=== PATIENT | male | born 1965 | race Caucasian/White ===

== ENCOUNTER 2023-04-14 07:55 | Outpatient (OUT) | payer BC, SELFPAY ==
--- NOTE | 2023-04-14 | CT_ITS ---
[address] [address] Patient Name: ANITA ALFREDO MRN: [id number] date: 1965 Sex: M Assigned Patient Location: CT Current Patient Location: Accession/Order Number: [id number] Exam Date: 04/14/2023 08:08 Report Date: 04/15/2023 08:29 At the request of: TEVIN MUÑOZ Procedure: CT lung screening low-dose EXAMINATION: CT lung screening low-dose HISTORY: F17.200 Nicotine dependence unspecified uncomplicated COMPARISON: CT lung cancer screening 03/25/2022 TECHNIQUE: Axial, Coronal, and Sagittal images were created without the administration of IV contrast material. Dose reduction techniques were achieved by using automated exposure control and/or adjustment of mA and/or kV according to patient size and/or use of iterative reconstruction technique. FINDINGS: LUNGS: Mild emphysematous changes and mild apical pleural scarring. No nodules or infiltrates. PLEURA: No mass, effusion, or pneumothorax. VASCULATURE: No abnormality. SARA: No mass or pathologic adenopathy. MEDIASTINUM: No mass or pathologic adenopathy. CARDIAC: No enlargement, pericardial thickening, or pericardial effusion. AORTA: No aneurysm or dissection. CHEST WALL: No mass or axillary adenopathy BONES: No bone lesion or fracture. LIMITED ABDOMEN: No suspicious findings. Limited images of the upper abdomen. OTHER: Negative. CT/CT lung screening low-dose IMPRESSION: 1. Lung-RADS Category 1 Negative. No nodules and definitely benign nodules. Continue annual screening with LDCT in 12 months. Electronically authenticated by: PARDEEP AKHTAR Date: 04/15/2023 08:29
== END 2023-04-14 07:56 | disposition home or self-care (01) ==
LOC: CT 07:55
PROVIDERS: PCP Nurse Practitioner Family; Visit Provider Nurse Practitioner Family
DX: F17.200 Nicotine dependence, unspecified, uncomplicated (principal)
CPT/HCPCS: 71271

== ENCOUNTER 2023-08-01 13:41 | Emergency (ER) | payer BC, SELFPAY ==
[2023-08-01] VITALS (22 sets, daily range): BP systolic 127–148; BP diastolic 75–98; PULSE 88–107; TEMP 36.7; O2SAT 91–99; BMI 17.4
--- NOTE | 2023-08-01 14:08 | XR_ITS ---
The [address] [address] Patient Name: ANITA ALFREDO MRN: [id number] date: 1965 Sex: M Assigned Patient Location: ER Current Patient Location: ER Accession/Order Number: [id number] Exam Date: 08/01/2023 14:40 Report Date: 08/01/2023 15:30 At the request of: AMY SANDOVAL Procedure: XR chest 1V EXAMINATION: XR chest 1V HISTORY: cp ; chest pain COMPARISON: No relevant comparison available. FINDINGS: LUNGS: No significant pulmonary parenchymal abnormalities. VASCULATURE: No increased pulmonary vasculature. PLEURA: No pneumothorax, effusion, or pleural thickening. CARDIAC: No cardiomegaly or cardiac silhouette abnormality. MEDIASTINUM: No visible mass or adenopathy. BONES: No fracture or visible bone lesion. OTHER: Negative. XR/XR chest 1V IMPRESSION: 1. No acute cardiopulmonary process. Electronically authenticated by: PARDEEP AKHTAR Date: 08/01/2023 15:30
--- NOTE | 2023-08-01 14:08 | ECG_ITS ---
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
[2023-08-01] MEDS: IPRATROPIUM/ALBUTEROL SULFATE 3 ML AMPUL.NEB IH (14:19)
[2023-08-01 14:38] LABS: Basophils Percent Auto 0.3 % (0.2-2.0); Eosinophils Absolute Auto 0.1 10^3/uL (0.0-0.7); Eosinophils Percent Auto 1.1 % (0.9-7.0); Hematocrit 44.3 % (42.0-54.0); Hemoglobin 14.7 g/dL (14.0-18.0); Immature Granulocytes Abs Auto 0.03 10^3/uL (0.00-0.03); Immature Granulocytes Pct Auto 0.3 % (0.0-0.5); Lymphocytes Percent Auto 17.1 % (20.5-60.0); Mean Corpuscular HGB Conc 33.2 g/dL (29.9-35.2); Mean Corpuscular Hemoglobin 30.2 pg (25.9-34.0); Mean Platelet Volume 11.4 fL (9.5-13.5); Monocytes Absolute Auto 0.9 10^3/uL (0.3-0.8); Monocytes Percent Auto 7.7 % (1.7-12.0); Neutrophils Absolute Auto 8.6 10^3/uL (1.4-6.5); Neutrophils Percent Auto 73.5 % (43.0-75.0); Platelet Count 219 10^3/uL (150-450); Red Blood Count 4.87 10^6/uL (4.70-6.10); Red Cell Distribution Width 13.3 % (11.0-15.0); White Blood Count 11.7 10^3/uL (4.0-11.0)
[2023-08-01] MEDS: METHYLPREDNISOLONE SOD SUCC PF 125 MG/2 ML VIAL IVP (14:42)
[2023-08-01] MEDS: KETOROLAC TROMETHAMINE 30 MG/ML VIAL 15 MG IVP (14:42)
[2023-08-01 14:49] LABS: INR 0.96; Prothrombin Time 10.2 sec (9.0-11.6)
[2023-08-01 15:31] LABS: Alanine Aminotransferase 20 U/L (16-63); Albumin Globulin Ratio 1.1; Albumin Level 3.7 g/dL (3.4-5.0); Alkaline Phosphatase 60 U/L (46-116); Anion Gap 15.7; Aspartate Amino Transferase 39 U/L (15-37); BUN Creatinine Ratio 11.2; Bilirubin Total 1.3 mg/dL (0.2-1.0); Calcium 8.9 mg/dL (8.5-10.1); Carbon Dioxide 24.2 mmol/L (21.0-32.0); Chloride 103 mmol/L (98-107); Estimated GFR (African America >60 (>=60); Estimated GFR (Non-African Ame >60 (>=60); Globulin 3.5 g/dL; Glucose 110 mg/dL (74-106); Potassium 3.9 mmol/L (3.5-5.1); Sodium 139 mmol/L (136-145); Total Protein 7.2 g/dL (6.4-8.2); Troponin I High Sensitivity <4.0 pg/mL (4.0-76.1)
[2023-08-01 16:30] LABS: Troponin I High Sensitivity <4.0 pg/mL (4.0-76.1)
--- NOTE | 2023-08-01 16:43 | ED.CHESTPAI1 ---
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 he never had any reaction to them, he denies any history of fever chills or any other concern He always have a cough he denies any increase in the sputum production but he mentioned that shortness of breath on exertion is new The chest pain is more of a discomfort and tightness whenever he take a deep breath Related Data Home Medications ?Medication ?Instructions ?Recorded ?Confirmed albuterol sulfate 90 mcg/actuation inhalation 08/01/23 aerosol inhaler tiotropium bromide 2.5 inhalation 08/01/23 mcg/actuation mist for inhalation (Spiriva Respimat) Previous Rx's ?Medication ?Instructions ?Recorded prednisone 20 mg tablet 40 mg (2 x 20 mg) PO DAILY 5 days 08/01/23 #10 tabs Allergies Allergy/AdvReac Type Severity Reaction Status Date / Time No Known Drug Allergies Allergy Verified 08/01/23 13:51 Review of Systems ROS Status of ROS 10 or more systems reviewed and unremarkable except as noted in history and below Exam Narrative Exam Narrative: Nurses notes and vital signs reviewed and patient is not hypoxic. General: Well-appearing and in no apparent distress. Skin: Warm, dry, no pallor noted. No rash. Head: Normocephalic, atraumatic. Neck: Supple, non-tender. Eye: Pupils are equal, round and EOMI. No scleral icterus. Ears, Nose, Mouth, and Throat: TM are clear, no nasal mucosal hypertrophy. Oral mucosa is moist, no posterior oropharynx erythema, uvula is mid-line Cardiovascular: Regular Rate and Rhythm without murmur, gallop or rub. Respiratory: Distant breathing sound bilaterally Lungs are clear to auscultation, no wheezing, rales or rhonchi Chest Wall: no tenderness Back: No midline thoracic or lumbar vertebral tenderness. No CVA tenderness Musculoskeletal: normal ROM, no calf or popliteal tenderness, no lower extremity edema/swelling GI: Abdomen is soft, non-distended. Normal bowel sounds. No masses appreciated. No tenderness to palpation. No rebound, guarding, or rigidity noted. Neurological: A&O x4. No cranial nerve dysfunction observed. No truncal ataxia. Moves all extremities. Sensation intact. Psychiatric: Cooperative and interactive. Normal mood and affect. Constitutional Vital Signs, click to edit/add: Last Vital Signs Temp 98.0 F 08/01/23 13:47 Pulse 106 H 08/01/23 16:40 Resp 20 08/01/23 16:40 BP 148/88 H 08/01/23 16:30 Pulse Ox 95 08/01/23 16:40 O2 Del Method Room Air 08/01/23 14:20 Course Vital Signs Vital signs: Vital Signs Temperature 98.0 F 08/01/23 13:47 Pulse Rate 103 H 08/01/23 13:47 Respiratory Rate 16 08/01/23 13:47 Blood Pressure 136/96 H 08/01/23 13:47 Pulse Oximetry 96 08/01/23 13:47 Oxygen Delivery Method Room Air 08/01/23 13:47 Temperature 98.0 F 08/01/23 13:47 Pulse Rate 106 H 08/01/23 16:40 Respiratory Rate 20 08/01/23 16:40 Blood Pressure 148/88 H 08/01/23 16:30 Pulse Oximetry 95 08/01/23 16:40 Oxygen Delivery Method Room Air 08/01/23 14:20 MDM - Chest Pain MDM Narrative Medical decision making narrative: The patient CBC and chemistry showed no acute pathology EKG in the ER showing sinus rhythm with a heart rate of [address] elevation or depression Chest x-ray showed no acute pathology and the patient was feeling much better after treatment with breathing treatment as well as Toradol and prednisone in the ER The patient troponin was repeated twice both are negative He was discharged home with further treatment of COPD exacerbation with prednisone and to continue albuterol at home The patient is to follow up with primary care physician in next 2-3 days or to return to the emergency department should any of the signs or symptoms worsen or new symptoms develop. The patient agrees with the following Diagnosis and Treatment plan and the patient will be discharged home. Lab Data Labs: Lab Results 08/01/23 08/01/23 Range/Units 13:55 16:03 WBC 11.7 H (4.0-11.0) 10^3/uL RBC 4.87 (4.70-6.10) 10^6/uL Hgb 14.7 (14.0-18.0) g/dL Hct 44.3 (42.0-54.0) % MCV 91.0 (80.0-94.0) fL MCH 30.2 (25.9-34.0) pg MCHC 33.2 (29.9-35.2) g/dL RDW 13.3 (11.0-15.0) % Plt Count 219 (150-450) 10^3/uL MPV 11.4 (9.5-13.5) fL Neut % (Auto) 73.5 (43.0-75.0) % Lymph % (Auto) 17.1 L (20.5-60.0) % Brooks % (Auto) 7.7 (1.7-12.0) % Eos % (Auto) 1.1 (0.9-7.0) % Baso % (Auto) 0.3 (0.2-2.0) % Neut # (Auto) 8.6 H (1.4-6.5) 10^3/uL Lymph # (Auto) 2.0 (1.2-3.8) 10^3/uL Brooks # (Auto) 0.9 H (0.3-0.8) 10^3/uL Eos # (Auto) 0.1 (0.0-0.7) 10^3/uL Baso # (Auto) 0.0 (0.0-0.1) 10^3/uL Abs Immat Gran (auto) 0.03 (0.00-0.03) 10^3/uL Imm/Tot Granulo (auto) 0.3 (0.0-0.5) % PT 10.2 (9.0-11.6) sec INR 0.96 Sodium 139 (136-145) mmol/L Potassium 3.9 (3.5-5.1) mmol/L Chloride 103 (98-107) mmol/L Carbon Dioxide 24.2 (21.0-32.0) mmol/L Anion Gap 15.7 BUN 10.0 (7.0-18.0) mg/dL Creatinine 0.89 (0.70-1.30) mg/dL Est GFR ( Amer) >60 (>=60) Est GFR (Non-Af Amer) >60 (>=60) BUN/Creatinine Ratio 11.2 Glucose 110 H (74-106) mg/dL Calcium 8.9 (8.5-10.1) mg/dL Total Bilirubin 1.3 H (0.2-1.0) mg/dL AST 39 H (15-37) U/L ALT 20 (16-63) U/L Alkaline Phosphatase 60 (46-116) U/L Troponin I High Sens <4.0 L <4.0 L (4.0-76.1) pg/mL Total Protein 7.2 (6.4-8.2) g/dL Albumin 3.7 (3.4-5.0) g/dL Globulin 3.5 g/dL Albumin/Globulin Ratio 1.1 Discharge Plan Discharge Stand Alone Forms: Portal Instructions Chief Complaint: Chest Pain Clinical Impression: COPD exacerbation Patient Disposition: Home, Self-Care Time of Disposition Decision: 16:42 Condition: Good Prescriptions / Home Meds: New prednisone 20 mg tablet 40 mg PO DAILY 5 Days Qty: 10 0RF No Action albuterol sulfate 90 mcg/actuation HFA aerosol inhaler INHALATION Spiriva Respimat 2.5 mcg/actuation mist INHALATION Print Language: Greenlandic Instructions: COPD (Chronic Obstructive Pulmonary Disease) (ED) Referrals: TEVIN MUÑOZ [Primary Care Provider] - 1 week
== END 2023-08-01 16:55 | disposition home or self-care (01) ==
PROVIDERS: Emergency Provider Emergency Medicine; PCP Nurse Practitioner Family
DX: J44.1 Chronic obstructive pulmonary disease with (acute) exacerbation (principal)
CPT/HCPCS: 36415; 71045; 80053; 84484; 85025; 85610; 93005; 94640; 96374; 96375; 99285; J2919

== ENCOUNTER 2025-02-17 15:51 | Emergency (ER) | payer OTHER, SELFPAY ==
[2025-02-17 15:56] VITALS: BP 110/92; PULSE 119; TEMP 36.7; O2SAT 95; BMI 18.9
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
--- OUTSIDE RECORDS SUMMARY | 2025-02-17 17:56 | XMS_ITS | Patient Health Record ---
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 Role Phone Leni Richards Primary Care Provider [phone] Allergies No Known Allergies Reason For Referral No Information Medications Medication SIG (Take, Route, Frequency, Duration) Notes Start Date End Date Status Trelegy Ellipta 100-62.5-25 MCG/ACT 1 pu ff Inhalation Once a day; Duration: 30 days 4ActiveAlbuterol Sulfate HFA 108 (90 Base) MCG/ACT1 puff as needed Inhalation every 4 hrs; Duration: 30 daysActive Social History Tobacco Use: Social History Observation Description Date Details (start date - stop date) Current Smoker 09/04/1979 - NA Tobacco Control (Standard) Question Answer Notes Tobacco use: Current smoker When did you start smoking?09/04/1979How often do you smoke cigarettes?Every day AUDIT-C (Standard) Question Answer Notes Did you have a drink containing alcohol in the p ast year? Yes How often did you have six or more drinks on one occasion in the past year?Never (0 point)How many drinks did you have on a typical day when you were drinking in the past year?3 or 4 drinks (1 point)How often did you have a drink containing alcohol in the past year?2 to 3 times a week (3 points)Yxlszb4Ywvygigchebcyg Positive Problems Problem Type SNOMED Code ICD Code Onset Dates Problem Status W/U Status Risk Notes Problem Tobacco user (448149931) Nicotin e dependence, unspecified, uncomplicated (F17.200) ActiveconfirmedProblemHypertension (03092670)Hypertension (I10)Activeconfirmed ProblemCOPD - Chronic obstructive pulmonary disease (42514052)COPD (chronic obstructive pulmonary disease) (J44.9)ActiveconfirmedProblemErectile dysfunction (079361940)Erectile dysfunction (N52.9)ActiveconfirmedProblemPulmonary nodule (011327469)Pulmonary nodule (R91.1)Activeconfirmed Encounters Encounter Location Date Provider Diagnosis [facility] [address] [place] [address] 04/14/2024 Leni Richards Screening for lung cancer Z12.2 [facility] [address] [place] [address] 04/17/2024 Leni Richards Assessments Encounter Date Diagnosis (ICD Code) Assessment Notes Treatment Notes Treatment Clinical Notes Section Notes 04/14/2024 Screening for lung cancer (ICD-1 0 - Z12.2) Plan Of Treatment Pending Test Test Name Order Date CT LUNG CANCER SCREENING 04/14/2024 Insurance Providers Payer Name Payer Address Payer Phone Subscriber Number Group Number Insured Name Patient Relationship to Insured Coverage Start Date Coverage End Date [facility] [address] [facility] [phone] [id number] Tash Alves - patient is the insured Medical (General) History Medical History History ICD Code COPD (chronic obstructive pulmonary dise ase) J44.9 Erectile dysfunction N52.9 Hypertension I10 Pulmonary nodule R91.1 Surgical History Surgery Date(Month/Year) Rotator Cuff repair, right Tonsillectomyright hand surgery for fracture repairAppendectomyHospitalization History Reason Date(Month/Year) COPD
[2025-02-17 19:34] VITALS: BP 118/74; PULSE 74; O2SAT 100
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
== END 2025-02-17 19:35 | disposition home or self-care (01) ==
PROVIDERS: Emergency Provider Emergency Medicine; PCP Nurse Practitioner Family
DX: R07.89 Other chest pain (principal); M54.9 Dorsalgia, unspecified; M54.6 Pain in thoracic spine; V89.2XXA Person injured in unspecified motor-vehicle accident, traffic, initial encounter
CPT/HCPCS: 71250; 72128; 76376; 99284